=== PATIENT | male | born 1950 | race Caucasian/White ===

== ENCOUNTER 2024-02-02 13:38 | Emergency (ER) | payer MEDICARE, OTHER ==
[~2024-02-02] VITALS: Ht 160 cm; Wt 53.3 kg
[2024-02-02] MEDS ORDERED: DONEPEZIL HCL10 MG PO (15:29)
[2024-02-02] MEDS ORDERED: LEVETIRACETAM500 MG PO (15:29)
[2024-02-02] MEDS ORDERED: NAPROXEN500 MG PO (15:30)
[2024-02-02 15:42] LABS: BASOPHILS 0.3 % (0-2); EOSINOPHILS 0.9 % (0-6); HEMATOCRIT 48.6 % (35.0-50.0); HEMOGLOBIN 15.9 g/dL (12.0-18.0); LYMPHOCYTES 11.7 % (24-44); MCH 32.2 (27-36); MCHC 32.6 g/dl (30-36); MCV 98.5 fl (81-99); MONOCYTES 9.4 % (0-12); NEUTROPHILS 77.7 % (39-80); PLATELET COUNT 254 K/uL (140-440); RBC 4.93 M/ul (4.3-5.7)
[2024-02-02 15:56] LABS: ALBUMIN 3.5 g/dL (3.4-5.0); ALBUMIN/GLOBULIN RATIO 0.95 (1.1-2.4); ANION GAP 11.9 (7-21); BILIRUBIN, TOTAL 0.5 ng/dL (0.2-1.0); BUN/CREATININE RATIO 20.79 (6.0-28.6); CALCIUM 9.8 mg/dL (8.5-10.1); CREATININE, SERUM 1.01 mg/dL (0.70-1.30); POTASSIUM 3.9 mmol/L (3.5-5.1); PROTEIN, TOTAL 7.2 g/dL (6.4-8.2)
[2024-02-02 16:54] LABS: BILIRUBIN, URINE NEGATIVE (negative); BLOOD/HGB, URINE TRACE-I (Negative); KETONE, URINE SMALL (Negative); LEUK ESTERASE, URINE SMALL (negative); NITRITE, URINE NEGATIVE (negative); PH, URINE 6.5 (5-7)
[2024-02-02 16:59] LABS: RED BLOOD CELLS, URINE 0-1 /hpf (0-5)
[2024-02-02 17:00] LABS: BACTERIA, URINE RARE /hpf (negative); CASTS, URINE NONE SEEN \\lpf; CRYSTALS, URINE NONE SEEN (0-1+); EPITHELIAL CELLS, URINE SQUAMOUS 1+ /lpf (0-1+)
[2024-02-02 17:01] LABS: COLLECTION TYPE, URINE VOID; REFLEX CULTURE, URINE Yes (No)
[2024-02-02] MEDS ORDERED: CEFDINIR300 MG PO (17:41)
[2024-02-02] MEDS ORDERED: CEFDINIR 300 MG CAP PO ONE (17:45)
[2024-02-02 17:51] VITALS: BP 140/83
== END 2024-02-02 17:53 | disposition home or self-care (01) ==
LOC: ED 13:38
PROVIDERS: Emergency Medicine
DX: N39.0 Urinary tract infection, site not specified (principal); Z79.899 Other long term (current) drug therapy
CPT/HCPCS: 36415; 80053; 81001; 85025; 87088; 99283